=== PATIENT | female | born 1940 | race Caucasian/White ===

== ENCOUNTER 2020-07-13 10:00 | Inpatient (IN) ==
[2020-09-14] MEDS ORDERED: Naloxone 0.4 MG/ML INJ IVP PRN (14:42)
[2020-09-14 15:39] LABS: INR 2.4; Prothrombin Time 27.5 Seconds (9.4-12.1)
[2020-09-14 15:47] LABS: BUN/Creatinine Ratio 17 (6-26); Blood Urea Nitrogen 14 mg/dL (8-23); Carbon Dioxide 27 mEq/L (23-29); Chloride 104 mEq/L (98-107); Glucose 93 mg/dL (70-105); Osmolality,Calculated 284 (280-300); Potassium 4.3 mEq/L (3.5-5.1); Sodium 137 mEq/L (136-145); eGFR For African Americans > 60 (> 60); eGFR For Non-African Americans > 60 (> 60)
[2020-09-14] MEDS: Mirtazapine 15 MG TABLET PO SCH ×2 (21:24→21:27)
[2020-09-15] MEDS ORDERED: *HR* Warfarin 4 MG TABLET PO SCH (08:00)
[2020-09-15] MEDS: lisinopriL 20 MG TABLET PO SCH (08:31)
[2020-09-15] MEDS: Venlafaxine XR (24 HR) 75 MG CAP.ER.24H PO SCH (08:31)
[2020-09-15] MEDS: *HR* Warfarin 4 MG TABLET PO SCH (09:29)
[2020-09-15] MEDS: Tiotropium 10 INH DOSE IH SCH (10:40)
[2020-09-16] MEDS: Tiotropium 10 INH DOSE IH SCH (07:42)
[2020-09-16] MEDS: *HR* Warfarin 4 MG TABLET PO SCH (08:56)
[2020-09-16] MEDS: Venlafaxine XR (24 HR) 75 MG CAP.ER.24H PO SCH (08:56)
[2020-09-16] MEDS: lisinopriL 20 MG TABLET PO SCH (08:56)
[2020-09-17 06:29] VITALS: BP 148/67; PULSE 59; TEMP 98.1; O2SAT 90
[2020-09-17] MEDS: *HR* Warfarin 4 MG TABLET PO SCH (09:13)
[2020-09-17] MEDS: lisinopriL 20 MG TABLET PO SCH (09:13)
[2020-09-17] MEDS: Venlafaxine XR (24 HR) 75 MG CAP.ER.24H PO SCH (09:13)
[2020-09-17] MEDS: Tiotropium 10 INH DOSE IH SCH (10:55)
== END 2020-09-17 12:23 | disposition home or self-care (01) | DRG 310 ==
LOC: 3BNU
PROVIDERS: ADMIT Internal Medicine Clinical Cardiac Electrophysiology; ATTEND Internal Medicine Clinical Cardiac Electrophysiology